=== PATIENT | female | born 1965 | race Caucasian/White ===

== ENCOUNTER → 2016-10-07 | Outpatient (CLI) | payer BC ==
[~2016-10-07] MED LIST: LORTAB 5/500 501 TAB PO; WELLBUTRIN PO
== END ==
LOC: MC.RAD 11:31
DX: Z12.31 Encounter for screening mammogram for malignant neoplasm of breast (principal); D24.2 Benign neoplasm of left breast; D24.1 Benign neoplasm of right breast; Z80.3 Family history of malignant neoplasm of breast

== ENCOUNTER → 2017-11-03 | Outpatient (CLI) | payer BC | LOC: MC.RAD 10:10 | DX: Z12.31 Encounter for screening mammogram for malignant neoplasm of breast (principal) ==

== ENCOUNTER → 2018-12-03 | Outpatient (CLI) | payer BC | LOC: MC.RAD 07:00 | DX: Z12.31 Encounter for screening mammogram for malignant neoplasm of breast (principal); Z98.82 Breast implant status ==

== ENCOUNTER → 2019-12-16 | Outpatient (CLI) | payer BC | LOC: MC.RAD 15:48 | DX: Z12.31 Encounter for screening mammogram for malignant neoplasm of breast (principal); Z98.82 Breast implant status ==

== ENCOUNTER 2020-02-29 18:24 | Emergency (ER) | payer BC ==
[~2020-02-29] VITALS: Ht 160 cm; Wt 54.5 kg
[2020-02-29 18:31] VITALS: TEMP 97.7
[2020-02-29] MEDS ORDERED: SYNTHROID0.075 MG/T PO (18:57)
[2020-02-29] MEDS ORDERED: CELEBREX 1100 MG/CAP PO (18:58)
[2020-02-29] MEDS ORDERED: WELLBUTRIN XL300 M1 PO (18:58)
[2020-02-29] MEDS ORDERED: BACTRIM DS 8001 TAB PO (19:46)
[2020-02-29] MEDS ORDERED: FLAGYL500 MG PO (19:46)
[2020-02-29 20:08] VITALS: BP 133/89; PULSE 76
== END 2020-02-29 20:10 | disposition home or self-care (01) ==
LOC: COL.ER 18:24
DX: S61.254A Open bite of right ring finger without damage to nail, initial encounter (principal); E03.9 Hypothyroidism, unspecified; Z88.0 Allergy status to penicillin; Z23 Encounter for immunization; Z79.890 Hormone replacement therapy; W57.XXXA Bitten or stung by nonvenomous insect and other nonvenomous arthropods, initial encounter; Y92.410 Unspecified street and highway as the place of occurrence of the external cause

== ENCOUNTER → 2021-01-15 | Outpatient (CLI) | payer BC ==
[~2021-01-15] MED LIST changes: +BACTRIM DS 8001 TAB PO; +CELEBREX 1100 MG/CAP PO; +FLAGYL500 MG PO; +SYNTHROID0.075 MG/T PO; +WELLBUTRIN XL300 M1 PO
== END ==
LOC: MC.RAD 08:30
DX: Z12.31 Encounter for screening mammogram for malignant neoplasm of breast (principal); Z98.82 Breast implant status

== ENCOUNTER → 2022-02-25 | Outpatient (CLI) | payer BC | LOC: MC.RAD 14:43 | DX: Z12.31 Encounter for screening mammogram for malignant neoplasm of breast (principal) ==

== ENCOUNTER → 2024-04-27 | Outpatient (CLI) | payer OTHER | LOC: MC.RAD 13:45 | DX: Z12.31 Encounter for screening mammogram for malignant neoplasm of breast (principal) ==